=== PATIENT | female | born 1930 | race Caucasian/White ===

== ENCOUNTER 2019-09-13 21:14 | Inpatient (IN) | payer MEDICARE, BC ==
--- NOTE | 2019-09-13 21:27 | ED ---
General Adult HPI - General Stated complaint: Fall, hip pain Time Seen by Provider: 09/13/19 21:27 - History of Present Illness Initial comments: Patient is a pleasant 89-year-old female who walks with a walker, she is brought to the ER today via private vehicle for evaluation of right hip pain after a fall. Patient is currently visiting her granddaughter, she was walking to the kitchen with her walker. The kitchen for some laminate and the patient seemed to have lost her balance as her walker slipped out from underneath her. Patient fell and immediately began complaining of pain in her right hip, she is unable to stand, family is able to carry her to the vehicle bring her to the ER for further evaluation. She denies striking her head neck or back she denies any loss of consciousness she is not on any anticoagulant or antiplatelet medicatio ns. - Related Data Home Medications Medication Instructions Recorded Confirmed Atenolol [Tenormin] 25 mg PO HS 09/13/19 09/13/19 Levothyroxine Sodium [Synthroid] 100 mcg PO HS 09/13/19 09/13/19 Allergies Allergy/AdvReac Type Severity Reaction Status Date / Time No Known Allergies Allergy Verified 09/13/19 21:37 Review of Systems ROS Statement: Those systems with pertinent positive or pertinent negative responses have been documented in the HPI. ROS Other: All systems not noted in ROS Statement are negative. General Exam - General Exam Comments Initial Comments: Physical Exam GENERAL: Patient is well-developed and well-nourished. Patient is nontoxic and well- hydrated and is in no distress. HENT: Normocephalic, Atraumatic. EYES: PERRL, EOMI PULMONARY: Unlabored respirations. No audible rales rhonchi or wheezing was noted. CARDIOVASCULAR: Regular rate and rhythm Holosystolic murmur consistent with aortic stenosis ABDOMEN: Soft and nontender with normal bowel sounds. SKIN: Skin is clear with no lesions or rashes and otherwise unremarkable. : Deferred NEUROLOGIC: Alert and oriented to self, able to identify family members MUSCULOSKELETAL: Decreased range of motion of right lower Amanda he secondary to pain. Right leg is mildly shortened. PSYCHIATRIC: Pleasantly demented Course Vital Signs 09/13/19 21:33 Temperature 97.9 F Pulse Rate 70 Respiratory 18 Rate Blood Pressure 191/84 O2 Sat by Pulse 95 Oximetry EKG Findings - EKG Comments: EKG Findings:: EKG was obtained for preoperative clearance, EKG obtained at 2336, weight is 58 rhythm is sinus bradycardia normal axis, normal intervals, IL 162, care 70, QTC is 422 there are no acute ST elevations or depressions no evidence of acute ischemia or infarction. Medical Decision Making - Medical Decision Making She was seen and evaluated history is obtained from patient and family Pleasant lady demented 89-year-old female who had a slip and fall is now expressing right hip pain brought in by private vehicle. X-rays and pain management were ordered, x-rays confirmed a right IT fracture. Patient care was discussed with orthopedic call Dr. Nunez agrees with plan for admission to medicine with orthopedic consult nothing by mouth at midnight with the plan for likely operative repair. This was discussed with the patient's son and granddaughter at bedside. Was discussed with patient as well however due to her very advanced dementia patient forgot the diagnosis of hip fracture prior to me even leaving the room. Patient hemodynamically stable be admitted to the floor. Family believes the patient would want to remain full code - Lab Data Result diagrams: 09/13/19 22:01 09/13/19 22:01 Lab Results 09/13/19 09/13/19 09/13/19 Range/Units 22:01 22:01 22:01 WBC 9.2 (3.8-10.6) k/uL RBC 3.79 L (3.80-5.40) m/uL Hgb 11.9 (11.4-16.0) gm/dL Hct 36.8 (34.0-46.0) % MCV 97.1 (80.0-100.0) fL MCH 31.5 (25.0-35.0) pg MCHC 32.5 (31.0-37.0) g/dL RDW 12.4 (11.5-15.5) % Plt Count 188 (150-450) k/uL Neutrophils % 51 % Lymphocytes % 17 % Monocytes % 6 % Eosinophils % 23 % Basophils % 1 % Neutrophils # 4.7 (1.3-7.7) k/uL Lymphocytes # 1.6 (1.0-4.8) k/uL Monocytes # 0.5 (0-1.0) k/uL Eosinophils # 2.2 H (0-0.7) k/uL Basophils # 0.1 (0-0.2) k/uL Manual Slide Review Performed Anisocytosis (manual) Present PT 10.1 (9.0-12.0) sec INR 0.9 (<1.2) APTT 22.3 (22.0-30.0) sec Sodium 138 (137-145) mmol/L Potassium 4.4 (3.5-5.1) mmol/L Chloride 106 (98-107) mmol/L Carbon Dioxide 22 (22-30) mmol/L Anion Gap 10 mmol/L BUN 28 H (7-17) mg/dL Creatinine 1.60 H (0.52-1.04) mg/dL Est GFR (CKD-EPI)AfAm 33 (>60 ml/min/1.73 sqM) Est GFR (CKD-EPI)NonAf 29 (>60 ml/min/1.73 sqM) Glucose 108 H (74-99) mg/dL Calcium 9.3 (8.4-10.2) mg/dL Total Bilirubin 0.4 (0.2-1.3) mg/dL AST 24 (14-36) U/L ALT 16 (4-34) U/L Alkaline Phosphatase 75 (38-126) U/L Total Protein 6.3 (6.3-8.2) g/dL Albumin 3.9 (3.5-5.0) g/dL Disposition Clinical Impression: Fall, Fracture, intertrochanteric, right femur, Dementia Disposition: ADMITTED IP TO THIS [facility] Condition: Serious Is patient prescribed a controlled substance at d/c from ED?: No
[2019-09-13] MEDS ORDERED: ONDANSETRON 4 MG/2 ML VIAL IVP STA (21:30)
[2019-09-13] MEDS ORDERED: MORPHINE SULFATE 4 MG/ML SYRINGE IV STA (21:30)
[2019-09-13 22:19] LABS: Basophils # (A) 0.1 k/uL (0-0.2); Basophils % (A) 1 %; Eosinophils # (A) 2.2 k/uL (0-0.7); Eosinophils % (A) 23 %; HCT 36.8 % (34.0-46.0); HGB 11.9 gm/dL (11.4-16.0); Lymphocytes # (A) 1.6 k/uL (1.0-4.8); Lymphocytes % (A) 17 %; MCH 31.5 pg (25.0-35.0); MCHC 32.5 g/dL (31.0-37.0); MCV 97.1 fL (80.0-100.0); Mean Platelet Volume 9.2; Monocytes # (A) 0.5 k/uL (0-1.0); Monocytes % (A) 6 %; Neutrophils # (A) 4.7 k/uL (1.3-7.7); Neutrophils % (A) 51 %; Platelet Count 188 k/uL (150-450); RBC 3.79 m/uL (3.80-5.40); RDW 12.4 % (11.5-15.5); WBC 9.2 k/uL (3.8-10.6)
[2019-09-13 22:28] LABS: Albumin 3.9 g/dL (3.5-5.0); Calcium 9.3 mg/dL (8.4-10.2); Potassium 4.4 mmol/L (3.5-5.1); Total Bilirubin 0.4 mg/dL (0.2-1.3); Total Protein 6.3 g/dL (6.3-8.2)
--- NOTE | 2019-09-13 22:34 | XR ---
EXAMINATION TYPE: XR chest 1V DATE OF EXAM: 09/13/2019 COMPARISON: NONE HISTORY: Pain TECHNIQUE: Single view FINDINGS: Heart is normal. Lungs are clear of consolidation. There are no hilar masses. Costophrenic angles are clear. Thoracic aorta is atheromatous. Bony thorax is intact. IMPRESSION: No active cardiopulmonary disease. Normal heart.
[2019-09-13 22:35] LABS: INR 0.9 (<1.2); Partial Thromboplastin Time 22.3 sec (22.0-30.0); Prothrombin Time 10.1 sec (9.0-12.0)
--- NOTE | 2019-09-13 22:36 | XR ---
EXAMINATION TYPE: XR Hip Complete RT DATE OF EXAM: 09/13/2019 COMPARISON: NONE HISTORY: Fall. Pain. TECHNIQUE: Single view FINDINGS: There is comminuted intertrochanteric acute fracture right femur. There is some impaction. There is no dislocation. IMPRESSION: Acute comminuted intertrochanteric fracture right femur.
[2019-09-13] MEDS ORDERED: NALOXONE 0.4 MG/ML 1 ML VIAL IV PRN (22:57)
[2019-09-13] MEDS ORDERED: ONDANSETRON 4 MG/2 ML VIAL IVP PRN (22:57)
[2019-09-13 23:14] LABS: Anisocytosis (M) Present
[2019-09-14] MEDS: SODIUM CHLORIDE 0.9% 1,000 ML IV SCH ×2 (00:39→14:30)
[2019-09-14] MEDS: MORPHINE SULFATE 4 MG/ML SYRINGE IV PRN ×2 (02:45→07:20)
[2019-09-14 07:42] LABS: Glucose,Whole Blood 121 mg/dL (75-99)
[2019-09-14] MEDS ORDERED: PANTOPRAZOLE 40 MG/10 ML VIAL IV SCH (09:00)
[2019-09-14 11:34] LABS: Glucose,Whole Blood 119 mg/dL (75-99)
--- NOTE | 2019-09-14 11:47 | P.CRDCN ---
History of Present Illness Consult date: 09/14/19 Requesting physician: Manuel Stone Reason for Consult (text): preop clearance Chief complaint: hip pain, s/p fall History of present illness: This is a pleasantly confused 89-year-old female patient who is a very poor historian. Most the HPI was obtained from the chart. The patient is unclear regarding her past medical and surgical history however she does state she has a thyroid disorder and has a long-standing history of palpitations for which she is followed with a rib stiffener and heel dipper previously for. Past medical history in the chart lists coronary artery disease with prior heart catheterization and stenting in 2008, these details are not available to me. She is a nonsmoker. The patient resides in [place], [place] and was apparently here visiting her granddaughter. She apparently walks with a walker and lost her balance yesterday and fell. There is no report of loss of consciousness, dizziness or lightheadedness. She complained of right hip pain post fall and was brought to the emergency department by family. Chest x-ray on admission showed no active cardiopulmonary disease, normal heart. X-ray of the right hip showed acute comminuted intertrochanteric fracture of the right femur. EKG showed sinus bradycardia with some nonspecific ST-T wave abnormality. All medications listed in the chart include Synthroid 100 g by mouth daily and atenolol 25 mg by mouth daily. Vital signs show intermittent elevation of blood pressure with most recent blood pressure documented of 118/73. Laboratory values were reviewed and show a hemoglobin of 11.9, potassium 4.4, BUN 28 and creatinine 1.6. Upon examination, patient is sitting up in bed without significant complaints at this time. She does not appear to be in any acute distress. Again she is a poor historian but when asked she denies complaints of chest discomfort, palpitations, dizziness, lightheadedness, syncope, shortness of breath, orthopnea, PND or edema. Past Medical History Past Medical History: Coronary Artery Disease (CAD), Hypertension, Thyroid Disorder History of Any Multi-Drug Resistant Organisms: None Reported Past Surgical History: Heart Catheterization With Stent Past Anesthesia/Blood Transfusion Reactions: No Reported Reaction Date of Last Stent Placement:: 2008 Past Psychological History: No Psychological Hx Reported Smoking Status: Never smoker Past Alcohol Use History: None Reported - Past Family History Mother Family Medical History: Unable to Obtain Medications and Allergies Home Medications Medication Instructions Recorded Confirmed Type Atenolol [Tenormin] 25 mg PO HS 09/13/19 09/13/19 History Levothyroxine Sodium [Synthroid] 100 mcg PO HS 09/13/19 09/13/19 History Allergies Allergy/AdvReac Type Severity Reaction Status Date / Time No Known Allergies Allergy Verified 09/13/19 21:37 Physical Exam Vitals: Vital Signs Temp Pulse Pulse Resp BP BP Pulse Ox 09/14/19 04:43 97.8 F 63 19 118/73 93 L 09/14/19 00:11 97.4 F L 65 16 166/68 100 09/13/19 23:46 98.7 F 60 20 138/78 98 09/13/19 21:33 97.9 F 70 18 191/84 95 Intake and Output 09/13/19 09/14/19 09/14/19 22:59 06:59 14:59 Intake Total 375 Balance 375 Intake: Intake, IV Titration 375 Amount Sodium Chloride 0.9% 1, 375 000 ml @ 75 mls/hr IV . [id number] [facility] Rx#:[id number] Other: Voiding Method Indwelling Catheter Weight 59.874 kg 45.5 kg PHYSICAL EXAMINATION: HEENT: Head is atraumatic, normocephalic. Pupils equal, round. Neck is supple. There is no elevated jugular venous pressure. HEART EXAMINATION: Heart sounds regular, S1 and S2 with a systolic murmur. CHEST EXAMINATION: Lungs are clear to auscultation anteriorly. No chest wall tenderness is noted on palpation or with deep breathing. ABDOMEN: Soft, nontender. Bowel sounds are heard. No organomegaly noted. EXTREMITIES: 2+ peripheral pulses with no evidence of peripheral edema and no calf tenderness noted. NEUROLOGIC patient is awake, alert and oriented x1. . Results 09/13/19 22:01 09/13/19 22:01 Cardiac Enzymes 09/13/19 Range/Units 22: AST 24 (14-36) U/L Coagulation 09/13/19 Range/Units 22: PT 10.1 (9.0-12.0) sec APTT 22.3 (22.0-30.0) sec CBC 09/13/19 Range/Units 22:01 WBC 9.2 (3.8-10.6) k/uL RBC 3.79 L (3.80-5.40) m/uL Hgb 11.9 (11.4-16.0) gm/dL Hct 36.8 (34.0-46.0) % Plt Count 188 (150-450) k/uL Comprehensive Metabolic Panel 09/13/19 Range/Units 22:01 Sodium 138 (137-145) mmol/L Potassium 4.4 (3.5-5.1) mmol/L Chloride 106 (98-107) mmol/L Carbon Dioxide 22 (22-30) mmol/L BUN 28 H (7-17) mg/dL Creatinine 1.60 H (0.52-1.04) mg/dL Glucose 108 H (74-99) mg/dL Calcium 9.3 (8.4-10.2) mg/dL AST 24 (14-36) U/L ALT 16 (4-34) U/L Alkaline Phosphatase 75 (38-126) U/L Total Protein 6.3 (6.3-8.2) g/dL Albumin 3.9 (3.5-5.0) g/dL Current Medications Generic Name Dose Route Start Last Admin Trade Name Freq PRN Reason Stop Dose Admin Atenolol 25 mg 09/14/19 21:00 Tenormin PO HS [facility] Sodium Chloride 1,000 mls @ 75 mls/hr 09/13/19 23:00 09/14/19 00:39 Saline 0.9% IV 75 mls/hr .[id number] [facility] Administration Levothyroxine Sodium 100 mcg 09/14/19 21:00 Synthroid PO HS [facility] Morphine Sulfate 4 mg 09/13/19 22:57 09/14/19 07:20 Morphine Sulfate (Inj) IV 4 mg Q4HR PRN Administration Severe Pain Naloxone HCl 0.2 mg 09/13/19 22:57 Narcan IV Q2M PRN Opioid Reversal Ondansetron HCl 4 mg 09/13/19 22:57 Zofran IVP Q8HR PRN Nausea And Vomiting Pantoprazole Sodium 40 mg 09/14/19 09:00 09/14/19 09:42 Protonix IV 40 mg DAILY [facility] Administration Intake and Output 09/13/19 09/14/19 09/14/19 22:59 06:59 14:59 Intake Total 375 Balance 375 Intake: Intake, IV Titration 375 Amount Sodium Chloride 0.9% 1, 375 000 ml @ 75 mls/hr IV . [id number] [facility] Rx#:[id number] Other: Voiding Method Indwelling Catheter Weight 59.874 kg 45.5 kg 09/13/19 22:01 09/13/19 22:01 Assessment and Plan Assessment: #1 right intertrochanteric femur fracture status post mechanical fall #2 CAD with prior stenting in 2008 #3 dementia #4 hypothyroidism #5 hypertension Plan: From rib stiffener and heel dipper perspective, we'll obtain a 2-D echo with Doppler. We will attempt to obtain records from [place]. Depending on echocardiogram results patient should be okay to proceed with proposed surgery. We will continue to follow the patient for a further recommendations accordingly. [employer] note has been reviewed, I agree with a documented findings and plan of care. Patient was seen and examined.
[2019-09-14] MEDS ORDERED: ACETAMINOPHEN TAB 325 MG TAB PO PRN (15:26)
[2019-09-14 17:24] LABS: Glucose,Whole Blood 101 mg/dL (75-99)
--- NOTE | 2019-09-14 17:35 | P.CONS ---
History of Present Illness - Reason for Consult Preoperative clearance - History of Present Illness 72-year-old pleasant female with appears to have advanced dementia may be vascular dementia or senile dementia. Admitted for generalized weakness and fall resulting in intertrochanteric fracture of the right femur. Patient denied any chest pain patient denied any shortness of breath not a great historian patient is alert her 1 which appears to be her baseline. Patient had a cardiac catheterization years ago for which patient is on a beta doug not in any antiplatelet therapy. Patient does not appear to be in heart failure exacerbation in any shortness of breath. Patient denied dysuria. Review of Systems REVIEW OF SYSTEMS: Except for those mentioned above unable to often essentially review of systems due to her clinical condition Past Medical History Past Medical History: Coronary Artery Disease (CAD), Hypertension, Thyroid Disorder History of Any Multi-Drug Resistant Organisms: None Reported Past Surgical History: Heart Catheterization With Stent Past Anesthesia/Blood Transfusion Reactions: No Reported Reaction Date of Last Stent Placement:: 2008 Past Psychological History: No Psychological Hx Reported Smoking Status: Never smoker Past Alcohol Use History: None Reported - Past Family History Mother Family Medical History: Unable to Obtain Medications and Allergies Home Medications Medication Instructions Recorded Confirmed Type Atenolol [Tenormin] 25 mg PO HS 09/13/19 09/13/19 History Levothyroxine Sodium [Synthroid] 100 mcg PO HS 09/13/19 09/13/19 History Allergies Allergy/AdvReac Type Severity Reaction Status Date / Time No Known Allergies Allergy Verified 09/13/19 21:37 Physical Exam Vitals: Vital Signs Temp Pulse Pulse Resp BP BP Pulse Ox 09/14/19 12:13 97.5 F L 63 16 125/46 98 09/14/19 04:43 97.8 F 63 19 118/73 93 L 09/14/19 00:11 97.4 F L 65 16 166/68 100 09/13/19 23:46 98.7 F 60 20 138/78 98 09/13/19 21:33 97.9 F 70 18 191/84 95 Intake and Output 09/14/19 09/14/19 09/14/19 06:59 14:59 22:59 Intake Total 375 Output Total 600 Balance 375 -600 Intake: Intake, IV Titration 375 Amount Sodium Chloride 0.9% 1, 375 000 ml @ 75 mls/hr IV . [id number] [facility] Rx#:[id number] Output: Urine 600 Other: Voiding Method Indwelling Catheter Weight 45.5 kg PHYSICAL EXAMINATION: GENERAL: The patient is alert and oriented x, not in any acute distress. Well developed, well nourished. HEENT: Pupils are round and equally reacting to light. EOMI. No scleral icterus. No conjunctival pallor. Normocephalic, atraumatic. No pharyngeal erythema. No thyromegaly. CARDIOVASCULAR: S1 and S2 present. There is a systolic murmur and diuretic area. PULMONARY: Chest is clear to auscultation, no wheezing or crackles. ABDOMEN: Soft, nontender, nondistended, normoactive bowel sounds. No palpable organomegaly. MUSCULOSKELETAL: No joint swelling or deformity. EXTREMITIES: No cyanosis, clubbing, or pedal edema. NEUROLOGICAL: Gross neurological examination did not reveal any focal deficits. SKIN: No rashes. Results CBC & Chem 7: 09/13/19 22:01 09/13/19 22:01 Labs: Abnormal Lab Results - Last 24 Hours (Table) 09/13/19 09/13/19 09/14/19 Range/Units 22:01 22:01 07:19 RBC 3.79 L (3.80-5.40) m/uL Eosinophils # 2.2 H (0-0.7) k/uL BUN 28 H (7-17) mg/dL Creatinine 1.60 H (0.52-1.04) mg/dL Glucose 108 H (74-99) mg/dL POC Glucose (mg/dL) 121 H (75-99) mg/dL 09/14/19 09/14/19 Range/Units 11:31 17:22 RBC (3.80-5.40) m/uL Eosinophils # (0-0.7) k/uL BUN (7-17) mg/dL Creatinine (0.52-1.04) mg/dL Glucose (74-99) mg/dL POC Glucose (mg/dL) 119 H 101 H (75-99) mg/dL Assessment and Plan Plan: 1 preoperative clearance patient is low operative risk for other brick surgery. Patient doesn't have any chest pain at this time. Patient's beta doug will be changed to metoprolol to her perioperative hypotension. Cardiology already evaluated the surgery. 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 She is not in significant pain patient will be started on Tylenol for pain because of her renal dysfunction
--- NOTE | 2019-09-14 19:44 | ECHOF ---
Referral Reason:hypertension, pre-op MEASUREMENTS -------- HEIGHT: 152.4 cm WEIGHT: 45.4 kg BP: 118/73 RVIDd: 2.4 cm (< 3.3) IVSd: 1.3 cm (0.6 - 1.1) LVIDd: 3.5 cm (3.9 - 5.3) LVPWd: 1.5 cm (0.6 - 1.1) IVSs: 1.7 cm LVIDs: 2.5 cm LVPWs: 1.8 cm LA Diam: 4.0 cm (2.7 - 3.8) Ao Diam: 3.1 cm (2.0 - 3.7) AV Cusp: 1.2 cm (1.5 - 2.6) LA Diam: 3.9 cm (2.7 - 3.8) MV EXCURSION: 15.965 mm (> 18.000) MV EF SLOPE: 38 mm/s (70 - 150) EPSS: 0.2 cm MV E Lamonte: 0.51 m/s MV DecT: 233 ms MV A Lamonte: 0.92 m/s MV E/A Ratio: 0.56 RAP: 5.00 mmHg RVSP: 21.56 mmHg FINDINGS -------- Sinus rhythm. This was a technically adequate study. The left ventricular size is normal. There is mild concentric left ventricular hypertrophy. Overa ll left ventricular systolic function is normal with, an EF between 55 - 60 %. The right ventricle is normal in size. The left atrial size is normal. The right atrial size is normal. There is mild aortic valve sclerosis. There is mild aortic regurgitation. Mild mitral annular calcification present. Mild mitral regurgitation is present. Mild tricuspid regurgitation present. Right ventricular systolic pressure is normal at < 35 mmHg. There is no pulmonic regurgitation present. The aortic root size is normal. Echo free space indicative of a pericardial fat pad. CONCLUSIONS -------- 1. Sinus rhythm. 2. This was a technically adequate study. 3. The left ventricular size is normal. 4. There is mild concentric left ventricular hypertrophy. 5. Overall left ventricular systolic function is normal with, an EF between 55 - 60 %. 6. The left atrial size is normal. 7. There is mild aortic valve sclerosis. 8. There is mild aortic regurgitation. 9. Mild mitral annular calcification present. 10. Mild mitral regurgitation is present. 11. Mild tricuspid regurgitation present. 12. Right ventricular systolic pressure is normal at < 35 mmHg. 13. There is no pulmonic regurgitation present. 14. The aortic root size is normal. 15. Echo free space indicative of a pericardial fat pad. C4 PLANNER: Gale Kohli RDCS
[2019-09-14 20:05] LABS: Glucose,Whole Blood 127 mg/dL (75-99)
[2019-09-14] MEDS ORDERED: ATENOLOL 25 MG TAB PO SCH (21:00)
[2019-09-14] MEDS: METOPROLOL TARTRATE 25 MG TAB PO SCH (22:01)
[2019-09-14] MEDS: LEVOTHYROXINE 100 MCG TAB PO SCH (22:02)
[2019-09-15] MEDS: SODIUM CHLORIDE 0.9% 1,000 ML IV SCH ×2 (03:12→16:14)
[2019-09-15 07:09] LABS: Glucose,Whole Blood 124 mg/dL (75-99)
--- NOTE | 2019-09-15 07:59 | P.CNOR ---
History of Present Illness - [facility] Consult date: 09/14/19 Consult reason: fracture (Right hip) History of present illness: The patient is an 89-year-old female who was brought to the emergency department after a mechanical fall. The patient has dementia and is unable to provide any history. She does not recall the events surrounding the fall. According to the medical record, she is fell in the kitchen at her granddaughter's home. Patient localizes the pain to the right hip. She denies any other injuries or areas of pain. Past Medical History Past Medical History: Coronary Artery Disease (CAD), Hypertension, Thyroid Di sorder History of Any Multi-Drug Resistant Organisms: None Reported Past Surgical History: Heart Catheterization With Stent Past Anesthesia/Blood Transfusion Reactions: No Reported Reaction Date of Last Stent Placement:: 2008 Past Psychological History: No Psychological Hx Reported Smoking Status: Never smoker Past Alcohol Use History: None Reported - Past Family History Mother Family Medical History: Unable to Obtain Medications and Allergies Home Medications Medication Instructions Recorded Confirmed Type Atenolol [Tenormin] 25 mg PO HS 09/13/19 09/13/19 History Levothyroxine Sodium [Synthroid] 100 mcg PO HS 09/13/19 09/13/19 History Allergies Allergy/AdvReac Type Severity Reaction Status Date / Time No Known Allergies Allergy Verified 09/13/19 21:37 Physical Examination Geneneral: The patient is lying supine in bed and appears in no acute distress Psychiatric: The patient can state her name and date of but does not know the month, year or what city she is in Musculoskeletal: The right lower extremity rests in a shortened and externally rotated position. Positive tenderness to palpation over the greater trochanter. No visible ulcerations, abrasions or ecchymosis around the hip. Pain with logroll. The pelvis is stable to AP and lateral compression. No gross deformities or malalig nment in the leg or thigh. The calf is soft and nontender. Intact active dorsiflexion and plantarflexion. Light touch sensation is subjectively intact throughout the lower extremity and symmetric to the contralateral side. The foot is warm, dry and well-perfused. Secondary survey reveals no tenderness to palpation or visible deformity in the contralateral leg or bilateral upper extremities. Results - Labs Labs: Abnormal Lab Results - Last 24 Hours (Table) 09/14/19 09/14/19 09/14/19 Range/Units 11:31 17:22 20:03 POC Glucose (mg/dL) 119 H 101 H 127 H (75-99) mg/dL 09/15/19 Range/Units 07:07 POC Glucose (mg/dL) 124 H (75-99) mg/dL H & H 09/13/19 Range/Units 22:01 Hgb 11.9 (11.4-16.0) gm/dL Hct 36.8 (34.0-46.0) % Coagulation 09/13/19 Range/Units 22:01 INR 0.9 (<1.2) Result Diagrams: 09/13/19 22:01 09/13/19 22:01 - Diagnostic results Hip x-ray: image reviewed (Comminuted, displaced right intertrochanteric femur fracture with shortening and varus deformity.) Assessment and Plan Plan: The patient has a displaced intertrochanteric femur fracture that is best treated surgically. We will contact the patient's family/DPOA to discuss risks and benefits and the specifics of the operative plan. The patient will be kept on bedrest. Continue PRN pain management. NPO after midnight. We will plan for surgery after preoperative evaluation by the internal medicine and cardiology teams. Thank you for allowing me to participate in the care of this patient. Alex Nunez D.O. [facility]
[2019-09-15 08:00] LABS: HCT 27.4 % (34.0-46.0); Hypochromasia Slight; MCH 31.8 pg (25.0-35.0); MCHC 31.1 g/dL (31.0-37.0); Macrocytosis Slight; Mean Platelet Volume 9.2; Platelet Count 149 k/uL (150-450); RBC 2.68 m/uL (3.80-5.40); RDW 12.4 % (11.5-15.5)
[2019-09-15] MEDS ORDERED: ONDANSETRON 4 MG/2 ML VIAL ONE (08:04)
[2019-09-15] MEDS ORDERED: DEXAMETHASONE SOD PHOS (MDV) 100 MG/10 ML VIAL ONE (08:04)
[2019-09-15] MEDS ORDERED: SUCCINYLCHOLINE CHLORIDE 100 MG/5 ML SYR IV ONE (08:04)
[2019-09-15] MEDS ORDERED: LIDOCAINE 1% INJ 10MG/ML (20 ML MDV) ONE (08:04)
[2019-09-15] MEDS ORDERED: PROPOFOL 10 MG/ML 20 ML VIAL IV ONE (08:04)
[2019-09-15] MEDS ORDERED: fentaNYL (PF) 50 MCG/ML 2 ML AMP ONE (08:04)
[2019-09-15] MEDS ORDERED: LACTATED RINGERS 1,000 ML IV ONE ×3 (08:06→12:08)
[2019-09-15 08:10] LABS: HGB 8.5 gm/dL (11.4-16.0); MCV 102.2 fL (80.0-100.0)
[2019-09-15 08:19] LABS: Calcium 8.7 mg/dL (8.4-10.2); Potassium 4.5 mmol/L (3.5-5.1)
[2019-09-15] MEDS ORDERED: SODIUM CHLORIDE 0.9% 100 ML with ceFAZolin 2,000 MG IV ONE ×2 (08:25)
[2019-09-15] MEDS ORDERED: ROPIVACAINE 5MG/ML 20ML VIAL MISCELLANE ONE ×2 (10:48→10:53)
--- NOTE | 2019-09-15 11:27 | P.EN ---
I came to see the patient and he was in surgery
[2019-09-15] MEDS ORDERED: HYDROmorphone 0.5 MG/0.5 ML SYRINGE IVP ONE ×2 (11:30→11:38)
--- NOTE | 2019-09-15 11:47 | FL ---
EXAMINATION TYPE: FL guidance operating room, XR Hip Limited RT DATE OF EXAM: 09/15/2019 CLINICAL HISTORY: Right hip fracture. TECHNIQUE: Fluoroscopy. Limited intraoperative views right hip COMPARISON: Right hip x-ray 2 days ago. FINDINGS: Fluoroscopic guidance was provided during open reduction and internal fixation procedure p erformed by orthopedic surgeon. A total of 189 seconds of fluoroscopic time was utilized during the procedure and 4 spot images was acquired. 4 intraoperative spot images show partial visualization of intramedullary dany with large femoral neck fixating screw through the intertrochanteric comminuted fracture right proximal femur. Improved alig nment is seen after reduction and fixation on images saved. IMPRESSION: As Above.
--- NOTE | 2019-09-15 11:48 | P.OP ---
Date of Procedure: 09/15/19 Preoperative Diagnosis: Right transtrochanteric femur fracture Postoperative Diagnosis: Right transtrochanteric femur fracture Procedure(s) Performed: Closed reduction and cephalomedullary nailing of right transtrochanteric femur fracture Implants: Synthes TTFN 11 mm x 340 mm, 130 long nail with an 85 mm spiral blade and two 5.0 mm distal locking screws Anesthesia: MELLISAA, local Surgeon: Alex Nunez Estimated Blood Loss (ml): 200 Pathology: other (Intramedullary reamings) Condition: stable Disposition: PACU Indications for Procedure: The patient is a pleasant 89-year-old female who sustained a displaced right intertrochanteric femur fracture after a mechanical fall. She is in town visiting family for the holidays. She was walking from a carpeted floor onto the linoleum in the kitchen and her walker got away from her. X-rays in the emergency department revealed the fracture.Surgical treatment was recommended. The patient has dementia and lives at home with her in [place]. Risks and benefits were discussed with the patient's family, including (but not limited to) the risks of infection, bleeding, injury tendons or neurovascular structures, blood clots and possible need for future surgery. They expressed understanding and wished to proceed with surgery. Consent forms were signed. The surgical site was confirmed and marked preoperatively. Operative Findings: The fracture pattern was transtrochanteric with a displaced lesser trochanteric fragment. Some focal lucency was noted within the medullary canal in the subtrochanteric region. Intramedullary reamings were collected and sent for pathology. Description of Procedure: The patient was brought to the operative suite by the anesthesia team and general anesthesia was administered uneventfully. The patient was then transferred to a fracture table and positioned supine with the operative limb in a well-padded boot. The contralateral limb was flexed, abducted and secured to a padded, well-leg aguilar. All bony prominences were padded in the typical fashion. Preoperative antibiotics were administered. A time-out was performed, confirming patient identifiers, the operative side, site and procedure to be performed: all team members expressed agreement. The fracture was manually reduced and confirmed with orthogonal fluoroscopy images. The right lower extremity was prepped and draped in standard, sterile fashion. A small stab incision was made proximal to the greater trochanter and a guidewire was inserted. Fluoroscopy was used to localize the starting point at the tip of the greater trochanter and the wire was advanced into the proximal femur. The bone around the trochanter was noted to be fairly soft: the guidewire was able to be pushed through the cortex without drilling. Once the guidewire was appropriately positioned, the skin incision was extended to accommodate the entry reamer. The reamer was inserted through a soft tissue protector and advanced to the level of the lesser trochanter under fluoroscopic guidance. A curved, ball-tipped guidewire was then passed down the medullary canal, confirming placement on both AP and lateral x-rays. Insertion depth was confirmed on imaging. After measuring off the guidewire, sequential reaming was performed up to 12.5 mm. An 11 mm nail was selected and attached to the insertion handle. This passed easily down the medullary canal. An incision was made laterally along the proximal thigh for placement of the spiral blade. The insertion cannula was attached to the aiming arm. A guidewire was drilled through the nail and into the femoral head, confirming position and alignment on orthogonal imaging. Measuring off the guidewire, an 85 mm blade was selected. The cannulated drill was used and the blade was impacted into position and locked in place. Compression was applied through the insertion handle and confirmed on imaging. The insertion handle was removed. Attention was then turned to the distal locking screws. Utilizing perfect saxman technique, skin incisions were made at the level of the dynamic and distal static holes. A drill was passed lateral to medial across the distal femur. The length was measured off a guidewire and the screws were inserted. Screw length and position were confirmed on orthogonal images. Final x-rays were obtained to confirm fracture reduction and implant position. No intraoperative fractures were identified. All wounds were thoroughly irrigated with normal saline. The wounds were closed in layers: the fascia was repaired with 0-Vicryl; the subcutaneous tissues were reapproximated with interrupted 2-0 Vicryl sutures; and the skin was closed with bin. The surgical sites were injected with local anaesthetic for adjunctive postoperative pain control. Sterile dressings were applied. All sponge, needle and instrument counts were correct at the end of the procedure. The patient tolerated the procedure well. She was transferred to a hospital bed and transported to the recovery room in stable condition.
[2019-09-15 12:27] LABS: Glucose,Whole Blood 137 mg/dL (75-99)
--- NOTE | 2019-09-15 12:36 | XR ---
EXAMINATION TYPE: XR Femur RT 1 View DATE OF EXAM: 09/15/2019 CLINICAL HISTORY: Right hip fracture TECHNIQUE: Single view right femur is obtained immediately postoperatively. COMPARISON: Right hip x-ray 2 days earlier. FINDINGS: There is new large intramedullary dany with proximal femoral neck fixating screw and 2 dist al transverse fixating screws through comminuted intertrochanteric fracture right proximal femur. Ali gnment is satisfactory after reduction and fixation. Displaced fracture fragment involving lesser tro chanter is redemonstrated. Adjacent vertical skin bin and subcutaneous gas laterally is noted. IMPRESSION: As above.
[2019-09-15] MEDS: METOPROLOL TARTRATE 25 MG TAB PO SCH ×2 (15:08→20:26)
[2019-09-15] MEDS: PANTOPRAZOLE 40 MG TABLET PO SCH (15:08)
[2019-09-15 17:12] LABS: Glucose,Whole Blood 140 mg/dL (75-99)
[2019-09-15] MEDS: HYDROcodone/APAP 5-325MG 1 EACH TAB PO PRN (20:26)
[2019-09-15] MEDS: LEVOTHYROXINE 100 MCG TAB PO SCH (20:26)
[2019-09-15 20:28] LABS: Glucose,Whole Blood 149 mg/dL (75-99)
[2019-09-15] MEDS: QUEtiapine 25 MG TAB PO PRN (20:53)
[2019-09-16] MEDS: SODIUM CHLORIDE 0.9% 1,000 ML IV SCH ×2 (03:40→18:11)
[2019-09-16 07:11] LABS: Glucose,Whole Blood 99 mg/dL (75-99)
--- NOTE | 2019-09-16 07:25 | P.PN ---
Subjective This is a pleasant 89 years old female with past medical history of coronary artery disease status post stent placement in 2008, hypertension, hypothyroidism . Patient presents because of fall and right hip fracture. Patient underwent closed reduction and nailing of her right trans-trochanteric fracture yesterday. Today she still complaining from pain in her right hip. Patient denies chest pain or dyspnea. Patient was admitted about her condition but she has memory problem related to her dementia Objective - Vital Signs Vital signs: Vital Signs Temp 97.4 F L 09/16/19 05:51 Pulse 71 09/16/19 05:51 Resp 16 09/16/19 05:51 BP 152/74 09/16/19 05:51 Pulse Ox 100 09/16/19 05:51 Intake & Output 09/15/19 09/16/19 09/16/19 18:59 06:59 18:59 Intake Total 1150 1000 Output Total 550 500 Balance 600 500 Intake: IV 1100 Intake, IV Titration 50 800 Amount Sodium Chloride 0.9% 1, 800 000 ml @ 75 mls/hr IV . [id number] [facility] Rx#:[id number] ceFAZolin 2 gm In Sodium 50 Chloride 0.9% 50 ml @ 100 mls/hr IVPB Q8HR [facility] Rx# :[id number] Oral 200 Output: Urine 350 500 Uretheral (Santiago) 500 Estimated Blood Loss 200 Other: Voiding Method Indwelling Catheter Indwelling Catheter # Voids 2 - Exam GENERAL: The patient is alert and oriented x3, not in any acute distress. Well developed, well nourished. HEENT: Pupils are round and equally reacting to light. EOMI. No scleral icterus. No conjunctival pallor. Normocephalic, atraumatic. No pharyngeal erythema. No thyromegaly. CARDIOVASCULAR: S1 and S2 present. No murmurs, rubs, or gallops. PULMONARY: Chest is clear to auscultation, no wheezing or crackles. ABDOMEN: Soft, nontender, nondistended, normoactive bowel sounds. No palpable or ganomegaly. MUSCULOSKELETAL: No joint swelling or deformity. -EXTREMITIES: No cyanosis, clubbing, or pedal edema. Right hip dressing is in a Place, with her rest of the examination to the orthopedic team NEUROLOGICAL: Gross neurological examination did not reveal any focal deficits. SKIN: No rashes. no petechiae. - Labs CBC & Chem 7: 09/15/19 07:32 09/15/19 07:32 Labs: Abnormal Lab Results - Last 24 Hours (Table) 09/15/19 09/15/19 09/15/19 Range/Units 07:32 07:32 12:26 RBC 2.68 L (3.80-5.40) m/uL Hgb 8.5 L D (11.4-16.0) gm/dL Hct 27.4 L (34.0-46.0) % MCV 102.2 H D (80.0-100.0) fL Plt Count 149 L (150-450) k/uL Chloride 110 H (98-107) mmol/L Carbon Dioxide 20 L (22-30) mmol/L BUN 29 H (7-17) mg/dL Creatinine 1.38 H (0.52-1.04) mg/dL Glucose 113 H (74-99) mg/dL POC Glucose (mg/dL) 137 H (75-99) mg/dL 09/15/19 09/15/19 Range/Units 17:10 20:26 RBC (3.80-5.40) m/uL Hgb (11.4-16.0) gm/dL Hct (34.0-46.0) % MCV (80.0-100.0) fL Plt Count (150-450) k/uL Chloride (98-107) mmol/L Carbon Dioxide (22-30) mmol/L BUN (7-17) mg/dL Creatinine (0.52-1.04) mg/dL Glucose (74-99) mg/dL POC Glucose (mg/dL) 140 H 149 H (75-99) mg/dL Assessment and Plan Assessment: right trans-trochanteric fracture status post closed reduction and kneeling on 09/15/2019 Dementia History of coronary artery disease status post stent Hypertension Hypothyroidism Plan: This is a pleasant 89 years old female who presents with right hip fracture. Status post closed reduction. Pain control. Labs and medication were reviewed.. Continue same treatment. Continue with symptomatic treatment. Resume home medication. Monitor lytes and vitals. DVT and GI prophylaxis. Further recommendations of the clinical course of the patient DVT prophylaxis: Subcutaneous Lovenox GI Prophylaxis: Protonix PT/OT: Pending, as per orthopedic team Prognosis is guarded
[2019-09-16] MEDS: METOPROLOL TARTRATE 25 MG TAB PO SCH (07:31)
[2019-09-16] MEDS: PANTOPRAZOLE 40 MG TABLET PO SCH (07:32)
[2019-09-16 08:31] LABS: Basophils % (A) 0 %; Eosinophils % (A) 0 %; Lymphocytes # (A) 1.5 k/uL (1.0-4.8); Lymphocytes % (A) 14 %; MCH 32.5 pg (25.0-35.0); MCHC 32.7 g/dL (31.0-37.0); MCV 99.3 fL (80.0-100.0); Mean Platelet Volume 10.1; Monocytes # (A) 1.1 k/uL (0-1.0); Monocytes % (A) 11 %; Neutrophils # (A) 7.6 k/uL (1.3-7.7); Neutrophils % (A) 73 %; Platelet Count 158 k/uL (150-450); RBC 1.95 m/uL (3.80-5.40); RDW 12.6 % (11.5-15.5); WBC 10.5 k/uL (3.8-10.6)
[2019-09-16 08:36] LABS: HCT 19.4 % (34.0-46.0)
[2019-09-16 08:37] LABS: HGB 6.3 gm/dL (11.4-16.0)
[2019-09-16] MEDS ORDERED: ENOXAPARIN 40 MG/0.4 ML SYRINGE SQ SCH (09:00)
[2019-09-16] MEDS ORDERED: FUROSEMIDE 10 MG/ML 2 ML VIAL IV PRN (09:33)
--- NOTE | 2019-09-16 11:21 | P.PN ---
Subjective This is Caroline Luis PA-C dictating a progress note on this patient The patient was interviewed and examined by me as well as by Dr. Horowitz Case discussed with Dr. Horowitz and he agrees with the plan of care IMPRESSION / ASSESSMENT: Right femur fracture secondary to mechanical fall status post closed reduction CAD status post stenting Hypertension, BP trending in the 150s sytolic Dementia anemia PLAN: Increase metoprolol to 50 mg by mouth twice a day for hypertension management Will sign off, please call as needed HPI/interval history Patient is an 89-year-old female with a past medical history of CAD status post stenting, hypertension, and dementia who presented after a fall. She had a femur fracture and yesterday she underwent a closed reduction and medullary nailing. Patient seen and examined resting comfortably in bed. Complaining of some hip pain. Denies any chest discomfort, palpitations, shortness of breath, dizziness. EXAMINATION Temperature 97.4F, pulse 71, respirations 16, pressure 152/74, oxygen saturatio n percent on 2 L nasal cannula Patient seen and examined resting in bed, in no acute distress Lungs clear to auscultation bilaterally Heart is regular, normal S1-S2, no murmurs audible REVIEW OF LABS, ECG WBC 10.5, hemoglobin 6.3, platelets 158, potassium 4.3, BUN 29, creatinine 1.38 Echocardiogram shows EF 55-60%, mild concentric hypertrophy Objective - Vital Signs Vital signs: Vital Signs Temp 97.4 F L 09/16/19 05:51 Pulse 71 09/16/19 05:51 Resp 16 09/16/19 05:51 BP 152/74 09/16/19 05:51 Pulse Ox 100 09/16/19 05:51 Intake & Output 09/15/19 09/16/19 09/16/19 18:59 06:59 18:59 Intake Total 1150 1000 Output Total 550 500 Balance 600 500 Intake: IV 1100 Intake, IV Titration 50 800 Amount Sodium Chloride 0.9% 1, 800 000 ml @ 75 mls/hr IV . [id number] [facility] Rx#:[id number] ceFAZolin 2 gm In Sodium 50 Chloride 0.9% 50 ml @ 100 mls/hr IVPB Q8HR [facility] Rx# :[id number] Oral 200 Output: Urine 350 500 Uretheral (Santiago) 500 Estimated Blood Loss 200 Other: Voiding Method Indwelling Catheter Indwelling Catheter Indwelling Catheter # Voids 2 - Labs CBC & Chem 7: 09/16/19 07:59 09/15/19 07:32 Labs: Abnormal Lab Results - Last 24 Hours (Table) 09/15/19 09/15/19 09/15/19 Range/Units 12:26 17:10 20:26 RBC (3.80-5.40) m/uL Hgb (11.4-16.0) gm/dL Hct (34.0-46.0) % Monocytes # (0-1.0) k/uL POC Glucose (mg/dL) 137 H 140 H 149 H (75-99) mg/dL 09/16/19 Range/Units 07:59 RBC 1.95 L (3.80-5.40) m/uL Hgb 6.3 L* D (11.4-16.0) gm/dL Hct 19.4 L* (34.0-46.0) % Monocytes # 1.1 H (0-1.0) k/uL POC Glucose (mg/dL) (75-99) mg/dL
[2019-09-16 11:36] LABS: Glucose,Whole Blood 103 mg/dL (75-99)
[2019-09-16] MEDS: HYDROcodone/APAP 5-325MG 1 EACH TAB PO PRN ×2 (12:31→21:10)
--- NOTE | 2019-09-16 15:12 | P.PN ---
Subjective Progress Note Date: 09/16/19 Chart reviewed. Interval events discussed with RN. The patient states that there is not much pain. She appears comfortable and interacts appropriately. She was able to get up to the bedside chair with assistance. Objective - Vital Signs Vital signs: Vital Signs Temp 98.3 F 09/16/19 12:07 Pulse 94 09/16/19 12:07 Resp 18 09/16/19 12:07 BP 187/65 09/16/19 12:07 Pulse Ox 96 09/16/19 12:07 Intake & Output 09/15/19 09/16/19 09/16/19 18:59 06:59 18:59 Intake Total 1150 1000 Output Total 550 500 600 Balance 600 500 -600 Intake: IV 1100 Intake, IV Titration 50 800 Amount Sodium Chloride 0.9% 1, 800 000 ml @ 75 mls/hr IV . [id number] [facility] Rx#:[id number] ceFAZolin 2 gm In Sodium 50 Chloride 0.9% 50 ml @ 100 mls/hr IVPB Q8HR [facility] Rx# :[id number] Oral 200 Output: Urine 350 500 600 Uretheral (Santiago) 500 Estimated Blood Loss 200 Other: Voiding Method Indwelling Catheter Indwelling Catheter Indwelling Catheter # Voids 2 - Exam No ecchymosis or significant fluid collection around the incisions to suggest hematoma. Pain with logroll but minimal discomfort with passive abduction and flexion of the leg. No gross leg length or rotational malalignment. The foot is warm and well-perfused. Light touch sensation is subjectively intact distally. Intact active dorsiflexion and plantar flexion. - Labs CBC & Chem 7: 09/16/19 07:59 09/15/19 07:32 Labs: Abnormal Lab Results - Last 24 Hours (Table) 09/15/19 09/15/19 09/16/19 Range/Units 17:10 20:26 07:59 RBC 1.95 L (3.80-5.40) m/uL Hgb 6.3 L* D (11.4-16.0) gm/dL Hct 19.4 L* (34.0-46.0) % Monocytes # 1.1 H (0-1.0) k/uL POC Glucose (mg/dL) 140 H 149 H (75-99) mg/dL Crossmatch 09/16/19 09/16/19 Range/Units 11:09 11:35 RBC (3.80-5.40) m/uL Hgb (11.4-16.0) gm/dL Hct (34.0-46.0) % Monocytes # (0-1.0) k/uL POC Glucose (mg/dL) 103 H (75-99) mg/dL Crossmatch See Detail Assessment and Plan Assessment: Postoperative day #1 status post cephalomedullary nailing of right transtrochanteric femur fracture Postoperative anemia Dementia Plan: The drop in hemoglobin is likely a combination of acute blood loss and hemodilution. One unit of blood has already been ordered. Leave Santiago in place for now to help monitor intake/output. X-ray & intraoperative findings concerning for pathologic fracture - pathology report on intraoperative reamings is pending Continue PRN pain management PT/OT - up with assist only, fall precautions Touchdown weightbearing with walker and standby assist. Discharge planning - the patient lives with her in [place]. We will try to coordinate arrangements for rehab placement near her home and referral to a local orthopedic surgeon for continued follow-up care.
[2019-09-16 17:21] LABS: Glucose,Whole Blood 99 mg/dL (75-99)
[2019-09-16] MEDS: HYDROmorphone 0.5 MG/0.5 ML SYRINGE IVP PRN (17:36)
[2019-09-16] MEDS: METOPROLOL TARTRATE 50 MG TAB PO SCH (19:52)
[2019-09-16] MEDS: LEVOTHYROXINE 100 MCG TAB PO SCH (19:52)
[2019-09-16 20:52] LABS: Glucose,Whole Blood 105 mg/dL (75-99)
[2019-09-17] MEDS: QUEtiapine 25 MG TAB PO PRN ×2 (01:43→22:32)
[2019-09-17] MEDS: HYDROmorphone 0.5 MG/0.5 ML SYRINGE IVP PRN (03:32)
--- NOTE | 2019-09-17 08:23 | P.PN ---
Subjective This is a pleasant 89 years old female with past medical history of coronary artery disease status post stent placement in 2008, hypertension, hypothyroidism . Patient presents because of fall and right hip fracture. Patient underwent closed reduction and nailing of her right trans-trochanteric fracture yesterday. Today she still complaining from pain in her right hip. Patient denies chest pain or dyspnea. Patient was admitted about her condition but she has memory problem related to her dementia 09/17/2019 Patient is awake however she is confused since yesterday with looks like a baseline, given today she could not remember why she is in the hospital. However today she is not complaining from pain in her right hip area were surge ry done as she was complaining of yesterday. No other complaints. Surgery team are following the case and pathology report is pending as pathological fracture is suspected. Hemoglobin dropped yesterday and she received 1 amp of blood transfusion. Repeat hemoglobin is pending, however vitals stable and actually her blood pressure on the high side 182/63 and examined her some antihypertensive. Objective - Vital Signs Vital signs: Vital Signs Temp 98.5 F 09/17/19 06:10 Pulse 91 09/17/19 06:10 Resp 16 09/17/19 06:10 BP 182/63 09/17/19 06:10 Pulse Ox 95 09/17/19 06:10 Intake & Output 09/16/19 09/17/19 09/17/19 18:59 06:59 18:59 Intake Total 310 2220 Output Total 1050 1700 Balance -740 520 Intake: Intake, IV Titration 900 Amount Sodium Chloride 0.9% 1, 900 000 ml @ 75 mls/hr IV . [id number] [facility] Rx#:[id number] Oral 1320 Blood Product 310 Rc As-1 Unit 310 [id number] Output: Urine 1050 1700 Other: Voiding Method Indwelling Catheter Indwelling Catheter - Exam GENERAL: The patient is alert and oriented x3, not in any acute distress. Well developed, well nourished. HEENT: Pupils are round and equally reacting to light. EOMI. No scleral icterus. No conjunctival pallor. Normocephalic, atraumatic. No pharyngeal erythema. No thyromegaly. CARDIOVASCULAR: S1 and S2 present. No murmurs, rubs, or gallops. PULMONARY: Chest is clear to auscultation, no wheezing or crackles. ABDOMEN: Soft, nontender, nondistended, normoactive bowel sounds. No palpable organomegaly. MUSCULOSKELETAL: No joint swelling or deformity. -EXTREMITIES: No cyanosis, clubbing, or pedal edema. Right hip dressing is in a Place, with her rest of the examination to the orthopedic team NEUROLOGICAL: Gross neurological examination did not reveal any focal deficits. SKIN: No rashes. no petechiae. - Labs CBC & Chem 7: 09/16/19 07:59 09/15/19 07:32 Labs: Abnormal Lab Results - Last 24 Hours (Table) 09/16/19 09/16/19 09/16/19 Range/Units 07:59 11:09 11:35 RBC 1.95 L (3.80-5.40) m/uL Hgb 6.3 L* D (11.4-16.0) gm/dL Hct 19.4 L* (34.0-46.0) % Monocytes # 1.1 H (0-1.0) k/uL POC Glucose (mg/dL) 103 H (75-99) mg/dL Crossmatch See Detail 09/16/19 Range/Units 20:50 RBC (3.80-5.40) m/uL Hgb (11.4-16.0) gm/dL Hct (34.0-46.0) % Monocytes # (0-1.0) k/uL POC Glucose (mg/dL) 105 H (75-99) mg/dL Crossmatch Assessment and Plan Assessment: right trans-trochanteric fracture status post closed reduction and kneeling on 09/15/2019 Dementia History of coronary artery disease status post stent Hypertension Hypothyroidism Plan: This is a pleasant 89 years old female who presents with right hip fracture. Status post closed reduction. Pain control. Follow-up hemoglobin after blood transfusion. Follow-up pathology report Labs and medication were reviewed.. Continue same treatment. Continue with symptomatic treatment. Resume home medication. Monitor lytes and vitals. DVT and GI prophylaxis. Further recommendations of the clinical course of the patient DVT prophylaxis: Subcutaneous Lovenox GI Prophylaxis: Protonix PT/OT: Pending, as per orthopedic team Prognosis is guarded
[2019-09-17] MEDS ORDERED: amLODIPine 5 MG TAB PO SCH (09:00)
[2019-09-17 09:20] LABS: Calcium 8.5 mg/dL (8.4-10.2); Potassium 4.4 mmol/L (3.5-5.1)
[2019-09-17 09:41] LABS: Glucose,Whole Blood 90 mg/dL (75-99)
[2019-09-17] MEDS: PANTOPRAZOLE 40 MG TABLET PO SCH (10:00)
[2019-09-17] MEDS: METOPROLOL TARTRATE 50 MG TAB PO SCH ×2 (10:00→21:53)
[2019-09-17] MEDS: HYDROcodone/APAP 5-325MG 1 EACH TAB PO PRN ×3 (10:01→23:48)
[2019-09-17] MEDS: SODIUM CHLORIDE 0.9% 1,000 ML IV SCH (10:01)
[2019-09-17 11:07] LABS: HCT 24.2 % (34.0-46.0); MCH 31.1 pg (25.0-35.0); MCHC 32.3 g/dL (31.0-37.0); MCV 96.3 fL (80.0-100.0); Mean Platelet Volume 9.8; Platelet Count 170 k/uL (150-450); RBC 2.51 m/uL (3.80-5.40); WBC 8.3 k/uL (3.8-10.6)
[2019-09-17 11:22] LABS: Glucose,Whole Blood 92 mg/dL (75-99)
[2019-09-17 11:23] LABS: HGB 7.8 gm/dL (11.4-16.0)
[2019-09-17 17:06] LABS: Glucose,Whole Blood 97 mg/dL (75-99)
[2019-09-17] MEDS: LEVOTHYROXINE 100 MCG TAB PO SCH (21:53)
[2019-09-18 01:33] LABS: Glucose,Whole Blood 110 mg/dL (75-99)
[2019-09-18 07:06] LABS: Glucose,Whole Blood 90 mg/dL (75-99)
[2019-09-18 08:33] LABS: Calcium 8.9 mg/dL (8.4-10.2); Potassium 4.1 mmol/L (3.5-5.1)
--- NOTE | 2019-09-18 08:34 | P.PN ---
Subjective This is a pleasant 89 years old female with past medical history of coronary artery disease status post stent placement in 2008, hypertension, hypothyroidism . Patient presents because of fall and right hip fracture. Patient underwent closed reduction and nailing of her right trans-trochanteric fracture yesterday. Today she still complaining from pain in her right hip. Patient denies chest pain or dyspnea. Patient was admitted about her condition but she has memory problem related to her dementia 09/17/2019 Patient is awake however she is confused since yesterday with looks like a baseline, given today she could not remember why she is in the hospital. However today she is not complaining from pain in her right hip area were surge ry done as she was complaining of yesterday. No other complaints. Surgery team are following the case and pathology report is pending as pathological fracture is suspected. Hemoglobin dropped yesterday and she received 1 amp of blood transfusion. Repeat hemoglobin is pending, however vitals stable and actually her blood pressure on the high side 182/63 and examined her some antihypertensive. 09/18/2019 Patient today's fully awake and oriented, she knows she is in hospital and she knows she broke her hip and had some kind of surgery. She said she has some pain in her right hip area but it's controlled. No Santiago catheter. I explained and the patient with her problems. Vitals stable, blood pressure still on the high side 170/78, we'll increase Norvasc to 10 mg daily and and Imdur 30 mg. Labs from today are pending. Follow-up pathology results which is still pending as the lesion is suspicious for pathological fracture. Patient status 1 unit of blood transfusion Objective - Vital Signs Vital signs: Vital Signs Temp 97.8 F 09/18/19 04:47 Pulse 89 09/18/19 04:47 Resp 16 09/18/19 04:47 BP 178/78 09/18/19 04:47 Pulse Ox 98 09/18/19 04:47 Intake & Output 09/17/19 09/18/19 09/18/19 18:59 06:59 18:59 Output Total 1300 Balance -1300 Output: Urine 1300 Uretheral (Santiago) 700 Other: Voiding Method Diaper Diaper # Voids 3 1 - Exam GENERAL: The patient is alert and oriented x3, not in any acute distress. Well developed, well nourished. HEENT: Pupils are round and equally reacting to light. EOMI. No scleral icterus. No conjunctival pallor. Normocephalic, atraumatic. No pharyngeal erythema. No thyromegaly. CARDIOVASCULAR: S1 and S2 present. No murmurs, rubs, or gallops. PULMONARY: Chest is clear to auscultation, no wheezing or crackles. ABDOMEN: Soft, nontender, nondistended, normoactive bowel sounds. No palpable organomegaly. MUSCULOSKELETAL: No joint swelling or deformity. -EXTREMITIES: No cyanosis, clubbing, or pedal edema. Right hip dressing is in a Place, with her rest of the examination to the orthopedic team NEUROLOGICAL: Gross neurological examination did not reveal any focal deficits. SKIN: No rashes. no petechiae. - Labs CBC & Chem 7: 09/17/19 08:04 09/17/19 08:04 Labs: Abnormal Lab Results - Last 24 Hours (Table) 09/17/19 09/17/19 09/18/19 Range/Units 08:04 08:04 01:31 RBC 2.51 L (3.80-5.40) m/uL Hgb 7.8 L D (11.4-16.0) gm/dL Hct 24.2 L (34.0-46.0) % Chloride 110 H (98-107) mmol/L BUN 21 H (7-17) mg/dL Creatinine 1.12 H (0.52-1.04) mg/dL POC Glucose (mg/dL) 110 H (75-99) mg/dL Assessment and Plan Assessment: right trans-trochanteric fracture status post closed reduction and kneeling on 09/15/2019 Acute blood loss anemia secondary to surgery and poor oral intake Dementia History of coronary artery disease status post stent Hypertension Hypothyroidism Plan: This is a pleasant 89 years old female who presents with right hip fracture. Status post closed reduction. Pain control. Follow-up hemoglobin after blood transfusion. Follow-up pathology report. And iron pills Labs and medication were reviewed.. Continue same treatment. Continue with symptomatic treatment. Resume home medication. Monitor lytes and vitals. DVT and GI prophylaxis. Further recommendations of the clinical course of the patient DVT prophylaxis: No anticoagulation in view of severe anemia. if Hemoglobin is stable we might start subcutaneous heparin today GI Prophylaxis: Protonix PT/OT: Pending, as per orthopedic team Prognosis is guarded
[2019-09-18 08:37] LABS: Basophils % (A) 0 %; Eosinophils # (A) 1.3 k/uL (0-0.7); Eosinophils % (A) 14 %; HCT 25.7 % (34.0-46.0); HGB 8.4 gm/dL (11.4-16.0); Lymphocytes # (A) 1.9 k/uL (1.0-4.8); Lymphocytes % (A) 21 %; MCHC 32.5 g/dL (31.0-37.0); MCV 95.5 fL (80.0-100.0); Mean Platelet Volume 9.3; Monocytes # (A) 0.6 k/uL (0-1.0); Monocytes % (A) 7 %; Neutrophils # (A) 5.2 k/uL (1.3-7.7); Neutrophils % (A) 56 %; Platelet Count 240 k/uL (150-450); RBC 2.69 m/uL (3.80-5.40); RDW 14.7 % (11.5-15.5); WBC 9.3 k/uL (3.8-10.6)
[2019-09-18] MEDS: METOPROLOL TARTRATE 50 MG TAB PO SCH ×2 (09:31→20:50)
[2019-09-18] MEDS: HYDROcodone/APAP 5-325MG 1 EACH TAB PO PRN ×2 (09:31→16:50)
[2019-09-18] MEDS: ISOSORBIDE MONONITRATE ER 30 MG TAB.ER.24H PO SCH (09:32)
[2019-09-18] MEDS: PANTOPRAZOLE 40 MG TABLET PO SCH (09:32)
[2019-09-18] MEDS: amLODIPine 10 MG TAB PO SCH (09:32)
[2019-09-18] MEDS: FERROUS SULFATE 325 MG TAB PO SCH ×2 (09:32→16:50)
[2019-09-18 11:46] LABS: Glucose,Whole Blood 112 mg/dL (75-99)
--- NOTE | 2019-09-18 12:01 | P.PN ---
Subjective Progress Note Date: 09/18/19 The patient states that the right leg seems to be functioning better. She was having difficulty moving initially, but this has resolved. Family is present at bedside report that she seems to be transferring better and showing less pain. Objective - Vital Signs Vital signs: Vital Signs Temp 97.8 F 09/18/19 04:47 Pulse 89 09/18/19 04:47 Resp 16 09/18/19 04:47 BP 178/78 09/18/19 04:47 Pulse Ox 98 09/18/19 04:47 Intake & Output 09/17/19 09/18/19 09/18/19 18:59 06:59 18:59 Output Total 1300 Balance -1300 Output: Urine 1300 Uretheral ([place]) 700 Other: Voiding Method Diaper Diaper # Voids 3 1 - Exam Diffuse evolving ecchymosis throughout the thigh, most prominent medially but also posterior to the surgical wounds. Dressings are intact but slightly shadowed with mostly serous fluid. The thigh is asymmetrically enlarged, consistent with postop edema and hematoma. All compartments of the thigh are soft and minimally tender over the areas of ecchymosis or surgical wounds. No focal fluid collection or fluctuance. She tolerates passive midrange circumduction, adduction and abduction with minimal discomfort. Intact active dorsiflexion and plantar flexion. Light touch sensation is subjectively intact distally. The foot is warm and well-perfused. - Labs CBC & Chem 7: 09/18/19 07:44 09/18/19 07:44 Labs: Abnormal Lab Results - Last 24 Hours (Table) 09/18/19 09/18/19 09/18/19 Range/Units 01:31 07:44 07:44 RBC 2.69 L (3.80-5.40) m/uL Hgb 8.4 L (11.4-16.0) gm/dL Hct 25.7 L (34.0-46.0) % Eosinophils # 1.3 H (0-0.7) k/uL Chloride 108 H (98-107) mmol/L POC Glucose (mg/dL) 110 H (75-99) mg/dL 09/18/19 Range/Units 11:41 RBC (3.80-5.40) m/uL Hgb (11.4-16.0) gm/dL Hct (34.0-46.0) % Eosinophils # (0-0.7) k/uL Chloride (98-107) mmol/L POC Glucose (mg/dL) 112 H (75-99) mg/dL Assessment and Plan Assessment: Postoperative day #3 status post cephalomedullary nailing of right transtrochanteric femur fracture Postoperative anemia - improved status post transfusion Dementia Plan: I discussed the clinical findings with the patient and her family. Hemoglobin appears stable. Recommend continued observation and repeat H&H tomorrow morning prior to resuming chemo prophylaxis for DVT. Pathology report on intraoperative reamings is pending Continue PRN pain management PT/OT - up with assist only, fall precautions Touchdown weightbearing with walker and standby assist. Discharge planning in progress - planning for a week or two of rehab locally prior to transfer back to [place]. I recommend holding discharge at least until tomorrow to trend hemoglobin and obtain pathology results.
[2019-09-18] MEDS ORDERED: SENNOSIDES-DOCUSATE SODIUM 1 EACH TAB PO STA (16:01)
[2019-09-18 17:11] LABS: Glucose,Whole Blood 111 mg/dL (75-99)
[2019-09-18] MEDS: LEVOTHYROXINE 100 MCG TAB PO SCH (20:50)
[2019-09-18] MEDS: SENNOSIDES-DOCUSATE SODIUM 1 EACH TAB PO SCH (20:50)
[2019-09-19] MEDS: HYDROcodone/APAP 5-325MG 1 EACH TAB PO PRN ×4 (01:26→20:46)
[2019-09-19 07:45] LABS: HCT 23.4 % (34.0-46.0); HGB 7.9 gm/dL (11.4-16.0); MCH 31.7 pg (25.0-35.0); MCHC 33.5 g/dL (31.0-37.0); MCV 94.4 fL (80.0-100.0); Platelet Count 265 k/uL (150-450); RBC 2.48 m/uL (3.80-5.40); RDW 14.7 % (11.5-15.5); WBC 10.3 k/uL (3.8-10.6)
[2019-09-19 08:01] LABS: Calcium 9.1 mg/dL (8.4-10.2); Potassium 4.1 mmol/L (3.5-5.1)
[2019-09-19] MEDS: METOPROLOL TARTRATE 50 MG TAB PO SCH ×2 (08:19→20:46)
[2019-09-19] MEDS: ISOSORBIDE MONONITRATE ER 30 MG TAB.ER.24H PO SCH (08:20)
[2019-09-19] MEDS: FERROUS SULFATE 325 MG TAB PO SCH ×2 (08:20→18:52)
[2019-09-19] MEDS: PANTOPRAZOLE 40 MG TABLET PO SCH (08:20)
[2019-09-19] MEDS: SENNOSIDES-DOCUSATE SODIUM 1 EACH TAB PO SCH ×2 (08:20→20:46)
[2019-09-19] MEDS: amLODIPine 10 MG TAB PO SCH (08:20)
--- NOTE | 2019-09-19 11:24 | P.PN ---
Subjective Progress Note Date: 09/19/19 Chart reviewed. No family at bedside. Patient expressed frustration about not being able to get up and move around. Objective - Vital Signs Vital signs: Vital Signs Temp 98.2 F 09/19/19 04:57 Pulse 79 09/19/19 04:57 Resp 17 09/19/19 04:57 BP 158/76 09/19/19 04:57 Pulse Ox 97 09/19/19 04:57 Intake & Output 09/18/19 09/19/19 09/19/19 18:59 06:59 18:59 Intake Total 650 Balance 650 Intake: Oral 650 Other: Voiding Method Bedside Commode Bedside Commode # Voids 1 2 - Exam Diffuse ecchymosis throughout the posterior and medial aspects of the thigh. Moderate serous drainage from the proximal wounds. No erythema, purulence or signs of infection. The calf is soft and nontender. No pain with active dorsiflexion and plantarflexion. - Labs CBC & Chem 7: 09/19/19 07:26 09/19/19 07:26 Labs: Abnormal Lab Results - Last 24 Hours (Table) 09/18/19 09/18/19 09/18/19 Range/Units 07:54 11:41 17:07 RBC (3.80-5.40) m/uL Hgb (11.4-16.0) gm/dL Hct (34.0-46.0) % Chloride (98-107) mmol/L POC Glucose (mg/dL) 112 H 111 H (75-99) mg/dL Vitamin D 25-Hydroxy 19.2 L (30.0-100.0) ng/mL 09/19/19 09/19/19 Range/Units 07:26 07:26 RBC 2.48 L (3.80-5.40) m/uL Hgb 7.9 L (11.4-16.0) gm/dL Hct 23.4 L (34.0-46.0) % Chloride 108 H (98-107) mmol/L POC Glucose (mg/dL) (75-99) mg/dL Vitamin D 25-Hydroxy (30.0-100.0) ng/mL Assessment and Plan Assessment: Postoperative day #4 status post cephalomedullary nailing of right transtrochanteric femur fracture Postoperative anemia - stable status post transfusion Dementia Plan: Dressings changed - change as needed when saturated. Hemoglobin is stable. Resume lovenox. Intraoperative specimens show no evidence of malignancy. Continue PT/OT - up with assist only, fall precautions Touchdown weightbearing with walker and standby assist. Okay to discharge to rehab from ortho standpoint. Follow up outpatient in 10-14 days.
[2019-09-19] MEDS: ENOXAPARIN 30 MG/0.3 ML SYRINGE SQ SCH (13:54)
[2019-09-19] MEDS: LEVOTHYROXINE 100 MCG TAB PO SCH (20:46)
[2019-09-19 21:21] VITALS: RESP 16
--- NOTE | 2019-09-19 23:12 | PN ---
PROGRESS NOTE DATE OF SERVICE: 09/19/2019. This 89-year-old woman who was admitted after fracture, had a closed reduction and nailing by Orthopedic surgery. The patient apparently visiting family from [place]. The patient complaining of right leg pain. Patient being closely monitored at this time. PAST MEDICAL HISTORY: Reviewed. REVIEW OF SYSTEMS: CARDIOVASCULAR SYSTEM: No angina or palpitations. Respiration as mentioned earlier. Gastrointestinal: As mentioned earlier. no dysuria. Central nervous system: No numbness or weakness. CURRENT MEDICATIONS: 1. Tylenol 650 q.4 p.r.n. 2. [place] 5 mg q.6h p.r.n. 3. Norvasc 10 mg daily. 4. Lovenox 30 mg subcu daily. 5. Iron sulfate. 6. Lasix 20 mg. 7. Dilaudid. 8. Imdur. 9. Synthroid. 10.Lopressor. 11.Zofran. 12.Protonix. 13.Seroquel. 14.Senokot-S. 15.Doses are reviewed. PHYSICAL EXAM: Patient is alert, oriented x3. Pulse 73, blood pressure 118/58, respirations 17, temperature 98.1, pulse ox 97% on room air. HEENT: Conjunctivae normal. Oral mucosa moist. NECK is no jugular venous distention. No carotid bruit. No lymph node enlargement. CARDIOVASCULAR systems: S1, S2 muffled. RESPIRATIONS: Breath sounds diminished in the bases. Scattered rhonchi. No crackles. ABDOMEN: Soft. LEGS: Status post right leg surgery. NERVOUS SYSTEM: Higher functions as mentioned earlier. Otherwise, no focal deficits. Lymphatics: No lymph nodes palpable in the neck, axillae or groin. SKIN: No ulcer, no rash and no bleeding. JOINTS: No active deforming arthropathy. LABS: WBC 10.3, hemoglobin 7.9. Vitamin D is 19.2. ASSESSMENT: 1. Status post closed reduction and cephalomedullary nailing of the right transthoracic femoral fracture. 2. Severe gait dysfunction, right leg pain. 3. Anemia, status post 1 unit transfusion. 4. Increased random blood sugar. 5. Low vitamin D and vitamin D deficiency. 6. History of coronary artery disease. 7. Hypertension. 8. Hypothyroidism. 9. History of coronary artery disease/stent. 10.Severe protein calorie malnutrition with BMI of 19.6. 11.Gait dysfunction. 12.FULL CODE. RECOMMENDATIONS AND DISCUSSION: In this 89 -year-old woman who presented with multiple complex medical issues, we will monitor the patient closely, continue the current medications, management and symptomatic treatment. Otherwise DVT prophylaxis. Resume the home medications. Supplement vitamins. Boost supplementation. PT/OT evaluation, possible ECF rehab. Discussed with the brother at length and the patient would like to have rehab here at least a couple of weeks before planning to move to [place]. Medication reconciliation done. Further recommendations to follow. MMODL / IJN: [id number] / MTDD
[2019-09-20] MEDS: HYDROcodone/APAP 5-325MG 1 EACH TAB PO PRN ×3 (02:31→15:04)
[2019-09-20 07:47] LABS: Basophils % (A) 0 %; Eosinophils # (A) 1.6 k/uL (0-0.7); Eosinophils % (A) 17 %; HCT 24.5 % (34.0-46.0); HGB 7.8 gm/dL (11.4-16.0); Lymphocytes # (A) 2.2 k/uL (1.0-4.8); Lymphocytes % (A) 23 %; MCH 30.6 pg (25.0-35.0); MCHC 31.9 g/dL (31.0-37.0); MCV 95.8 fL (80.0-100.0); Mean Platelet Volume 8.7; Monocytes # (A) 0.9 k/uL (0-1.0); Monocytes % (A) 10 %; Neutrophils # (A) 4.6 k/uL (1.3-7.7); Neutrophils % (A) 48 %; Platelet Count 305 k/uL (150-450); RBC 2.56 m/uL (3.80-5.40); WBC 9.5 k/uL (3.8-10.6)
[2019-09-20] MEDS: amLODIPine 10 MG TAB PO SCH (07:54)
[2019-09-20] MEDS: PANTOPRAZOLE 40 MG TABLET PO SCH (07:54)
[2019-09-20] MEDS: FERROUS SULFATE 325 MG TAB PO SCH (07:55)
[2019-09-20] MEDS: ISOSORBIDE MONONITRATE ER 30 MG TAB.ER.24H PO SCH (07:55)
[2019-09-20] MEDS: METOPROLOL TARTRATE 50 MG TAB PO SCH (07:55)
[2019-09-20] MEDS: SENNOSIDES-DOCUSATE SODIUM 1 EACH TAB PO SCH (07:55)
[2019-09-20 07:56] LABS: Calcium 9.1 mg/dL (8.4-10.2); Potassium 4.1 mmol/L (3.5-5.1)
[2019-09-20] MEDS: ENOXAPARIN 30 MG/0.3 ML SYRINGE SQ SCH (09:11)
[2019-09-20] MEDS ORDERED: FOLIC ACID 1 MG TAB PO SCH (12:00)
[2019-09-20] MEDS ORDERED: THIAMINE 100 MG TAB PO SCH (12:00)
[2019-09-20] MEDS ORDERED: MULTIVITAMINS, THERA 1 EACH TAB PO SCH (12:00)
--- NOTE | 2019-09-20 12:04 | P.DS ---
Providers Date of admission: 09/13/19 22:57 Attending physician: Manuel Stone Consults: 09/13/19 22:58 Consult Physician Urgent Consulting Provider: Alex Nunez Consult Reason/Comments: right iT fx Do you want consulting provider notified?: Already Contacted 09/13/19 23:02 Consult Physician Urgent Consulting Provider: Cardiology Rae Consult Reason/Comments: pre op clearance Do you want consulting provider notified?: Yes, Notify in am Primary care physician: Physician Nonstaff Hospital Course: Final diagnosis Status post closed reduction and the intramedullary nailing of the right breast thoracic femoral fracture severe gait dysfunction right leg pain Anemia status post 1 unit transfusion Increased and blood sugar Low vitamin D and vitamin D deficiency History of CAD Hypertension Hypothyroidism History of for CAD stent in Severe protein calorie malnutrition BMI of 19.6 Gait dysfunction full code Discharge disposition patient be discharged in a stable condition with guarded prognosis to [facility] for further evaluation and treatment of the care of Dr. Bird History of present illness This 89-year-old woman originally from [place] was admitted with hip fracture Dr. Nunez from the [facility] did the surgery. Patient was treated conservatively. Patient improved significantly. Patient be discharged to [facility] under the care of Dr. Bird for continued monitoring. To be followed up with the orthopedic surgery in the outpatient setting. On exam vitals are stable cardio S1 is normal abdomen soft no system no focal deficit Please see the medication reconciliation sheet for further history medications. Further recommendations per orthopedic surgery. Patient Condition at Discharge: Serious Plan - Discharge Summary Discharge Rx Participant: No New Discharge Prescriptions: New Calcium Carbonate 500 mg PO TID #30 tablet Cholecalciferol (Vitamin D3) [Vitamin D3] 50,000 unit PO WEEKLY #8 capsule Folic Acid 1 mg PO DAILY@1200 tab Isosorbide Mononitrate ER [Imdur] 30 mg PO DAILY tab.er.24h Ferrous Sulfate [Iron (65 MG Elemental)] 325 mg PO BID-W/MEALS tab Enoxaparin [Lovenox] 30 mg SQ DAILY #14 syringe Multivitamins, Thera [Multivitamin (formulary)] 1 each PO DAILY@1200 tab HYDROcodone/APAP 5-325MG [[place] 5-325] 1 each PO Q6HR PRN #19 tab PRN Reason: Pain amLODIPine [Norvasc] 10 mg PO DAILY tab Pantoprazole [Protonix] 40 mg PO DAILY #0 tablet. Senderic-Docusate Sodium [Senokot-S] 1 each PO BID tab QUEtiapine [SEROquel] 25 mg PO HS PRN tab PRN Reason: Agitation Acetaminophen Tab [Tylenol] 650 mg PO Q4HR PRN tab PRN Reason: Fever And/ Or Pain Thiamine [Vitamin B-1] 100 mg PO DAILY@1200 tab Continue Levothyroxine Sodium [Synthroid] 100 mcg PO HS Atenolol [Tenormin] 25 mg PO HS Discharge Medication List Atenolol [Tenormin] 25 mg PO HS 09/13/19 [History] Levothyroxine Sodium [Synthroid] 100 mcg PO HS 09/13/19 [History] Calcium Carbonate 500 mg PO TID #30 tablet 09/19/19 [Rx] Cholecalciferol (Vitamin D3) [Vitamin D3] 50,000 unit PO WEEKLY #8 capsule 09/19/19 [Rx] Acetaminophen Tab [Tylenol] 650 mg PO Q4HR PRN tab 09/20/19 [Rx] Enoxaparin [Lovenox] 30 mg SQ DAILY #14 syringe 09/20/19 [Rx] Ferrous Sulfate [Iron (65 MG Elemental)] 325 mg PO BID-W/MEALS tab 09/20/19 [Rx] Folic Acid 1 mg PO DAILY@1200 tab 09/20/19 [Rx] HYDROcodone/APAP 5-325MG [[place] 5-325] 1 each PO Q6HR PRN #19 tab 09/20/19 [Rx] Isosorbide Mononitrate ER [Imdur] 30 mg PO DAILY tab.er.24h 09/20/19 [Rx] Multivitamins, Thera [Multivitamin (formulary)] 1 each PO DAILY@1200 tab 09/20/19 [Rx] Pantoprazole [Protonix] 40 mg PO DAILY #0 tablet. 09/20/19 [Rx] QUEtiapine [SEROquel] 25 mg PO HS PRN tab 09/20/19 [Rx] Sennosides-Docusate Sodium [Senokot-S] 1 each PO BID tab 09/20/19 [Rx] Thiamine [Vitamin B-1] 100 mg PO DAILY@1200 tab 09/20/19 [Rx] amLODIPine [Norvasc] 10 mg PO DAILY tab 09/20/19 [Rx] Follow up Appointment(s)/Referral(s): Alex Nunez DO [Medical Doctor] - 2 Weeks Activity/Diet/Wound Care/Special Instructions: Orthopedic Postoperative Discharge Instructions Continue daily and as-needed dressing changes until no further drainage. Ok to shower and get incisions wet with soap and water. Do not soak incisions. No lotions or ointments on incisions. PRN pain management. Continue PT/OT. Touchdown weightbearing (RLE) with walker and standby assist. Fall precautions. Lovenox daily for 2 weeks, then DC and begin ASA 325mg PO BID for 4 weeks. Call as soon as possible to schedule a follow-up appointment with Dr. Nunez to be seen in approximately 10-14 days.
[2019-09-20 12:10] VITALS: BP 142/65; PULSE 84; TEMP 97.9
[2019-09-20 15:55] VITALS: BMI 25.7
--- NOTE | 2019-09-24 11:01 | CDI ---
Documentation Clarification Form Date: 09/24 2019 From: Yaneli Dial, Environmental Associate Phone: If you have any questions about this query, please contact Yaneli Miguel, at [phone] between 8 am and 5 pm. Admit date: 09/13/2019 Patient Name: Seema Hobbs Visit Number: [id number] Discharge Date: 09/20/2019 The Clinical Documentation Specialists (CD) and [facility] Coding Staff appreciate your assistance in clarifying documentation. Please respond to the clarification below the line at the bottom and electronically sign. The CDI [facility] Coding Staff will review the response and follow-up if needed. Please note: Queries are made part of the Legal Health Record. If you have any questions, please contact the author of this message via ITS. Dr. Nunez, The patient presented with fall and right femoral fracture. She was taken to the OR on 09/15 and had ORIF. Operative findings state that focal lucency was noted within the medullary canal. Intramedullary reamings were collected and sent for pathology. History/Risk Factors: Dementia, vitamin D deficiency, CAD, HTN, hypothyroidism, severe malnutrition (BMI 19). Clinical Indicators: Right hip pain Lab findings: Pathology finding are consistent with fracture. Radiology findings: Comminuted intertrochanteric fracture/right femur Vital Signs: Temp 97.9, pulse 70, resp 18, BP 191/84 In your professional opinion, can you please clarify if the collection of reamings? Integral to procedure for purpose of ORIF. Bone Biopsy \Other, please specify Unable to determine (Last Revision: December 2017) Can you please clarify the question? The reamings were collected to evaluate for occult malignancy or pre-existing bony lesion that may have contributed to the fracture. If present, this would have required additional workup and would affect her post operative treatment plan. STAR
== END 2019-09-20 16:26 | DRG 477 ==
LOC: EC 21:14 → 5NMEDONC 22:57
PROVIDERS: ADMIT Hospitalist; ATTEND Hospitalist
PROC: 0QS636Z Reposition Right Upper Femur with Intramedullary Internal Fixation Device, Percutaneous Approach (ICD-10-PCS; principal; 2019-09-15 08:00)
PROC: 0QB60ZX Excision of Right Upper Femur, Open Approach, Diagnostic (ICD-10-PCS; principal; 2019-09-15 08:00)
PROC: 30233N1 Transfusion of Nonautologous Red Blood Cells into Peripheral Vein, Percutaneous Approach (ICD-10-PCS; 2019-09-16)
DX: S72.141A Displaced intertrochanteric fracture of right femur, initial encounter for closed fracture (principal); E43 Unspecified severe protein-calorie malnutrition; D62 Acute posthemorrhagic anemia; Z68.1 Body mass index [BMI] 19.9 or less, adult; W01.0XXA Fall on same level from slipping, tripping and stumbling without subsequent striking against object, initial encounter; Y92.000 Kitchen of unspecified non-institutional (private) residence as the place of occurrence of the external cause; E03.9 Hypothyroidism, unspecified; E55.9 Vitamin D deficiency, unspecified; F03.90 Unspecified dementia, unspecified severity, without behavioral disturbance, psychotic disturbance, mood disturbance, and anxiety; I25.10 Atherosclerotic heart disease of native coronary artery without angina pectoris; Z79.890 Hormone replacement therapy; Z79.899 Other long term (current) drug therapy; Z95.5 Presence of coronary angioplasty implant and graft; I95.9 Hypotension, unspecified; N18.3 Chronic kidney disease, stage 3 (moderate); I12.9 Hypertensive chronic kidney disease with stage 1 through stage 4 chronic kidney disease, or unspecified chronic kidney disease
CPT/HCPCS: 36415; 71045; 73501; 73502; 80048; 80053; 82306; 85025; 85027; 85610; 85730; 86850; 86900; 86901; 86920; 88304; 88311; 93005; 93306; 96374; 96375; 99285